=== PATIENT | female | born 1945 | race Caucasian/White ===

== ENCOUNTER 2016-09-01 13:26 | Outpatient (CLI) | payer OTHER ==
--- NOTE | 2016-09-01 14:21 | DIAGNOSTIC IMAGING REPORT ---
PROCEDURE: CT LOW-DOSE LUNG CA SCREENING CLINICAL INDICATION: LUNG CA SCREEN TECHNIQUE: Low-dose helical CT images of the lungs without contrast were obtained and reconstructed at 2.5 mm intervals. MIP reformations in coronal and sagittal planes were created. Radiation dose 1.38 mGy. COMPARISON: Oldest available comparison: None FINDINGS: NODULES: Location: Right upper lobe; image location: 37; size: 5 mm; composition: Ground glass Location: Left upper lobe; image location: 27; size: 3 mm; composition: Ground-glass Location: Left upper lobe; image location: 33; size: 1 mm; composition: Ground-glass. Location: Left upper lobe; image location: 41; size: 3 mm; composition: Ground-glass OTHER LUNG FINDINGS: Moderate emphysema. AIRWAY: Branches normally without narrowing or endobronchial nodule. Bronchial wall thickening consistent with bronchitis. PLEURA: No effusions, thickening, or pneumothorax. AORTA AND GREAT VESSELS: Normal caliber, mild atherosclerotic calcification. PULMONARY ARTERIES: Normal. . HEART AND PERICARDIUM: Normal size without effusion, thickening. Coronary atherosclerosis. LYMPH NODES: No enlarged nodes visible. THORACIC SPINE: No suspicious lesion. Mild degenerative changes of the spine. CHEST WALL: Normal. VISUALIZED UPPER ABDOMEN: Normal. IMPRESSION: 1. Moderate emphysema and bronchitis 2. Four small bilateral pulmonary nodules, indeterminate 3. Category 2. Continue annual screening with LDCT in [address] scans at this facility use dose modulation, iterative reconstruction, and/or weight-based dosing when appropriate to reduce radiation dose to as low as reasonably achievable.
== END 2016-09-01 23:00 ==
LOC: CT SRH 13:26
DX: Z12.2 Encounter for screening for malignant neoplasm of respiratory organs (principal); J43.9 Emphysema, unspecified; J40 Bronchitis, not specified as acute or chronic; R91.8 Other nonspecific abnormal finding of lung field